=== PATIENT | male | born 1965 | race Caucasian/White ===

== ENCOUNTER 2017-02-26 21:28 | Inpatient (IN) | payer BC ==
[~2017-02-26] VITALS: Ht 188 cm; Wt 86.2 kg
[~2017-02-26 21:28] MED LIST: ATOR10TA PO; HYDR-548 PO
[2017-02-26] MEDS ORDERED: HYDROMORPHONE HCL 2 MG TABLET PO ONE ×2 (22:30→23:45)
[2017-02-26] MEDS ORDERED: ONDANSETRON ODT 4 MG TAB.RAPDIS SL ONE (22:30)
[2017-02-26] MEDS ORDERED: ONDANSETRON ODT 4 MG TAB.RAPDIS ONE (22:44)
[2017-02-26] MEDS ORDERED: HYDROMORPHONE HCL 2 MG TABLET ONE (22:45)
[2017-02-27] VITALS: BP 135/83
[2017-02-27] MEDS ORDERED: HYDROMORPHONE HCL 2 MG TABLET ONE (00:06)
[2017-02-27 00:21] LABS: BASOPHILS # (AUTO) 0.1 K/uL (0.0-8.0); BASOPHILS % (AUTO) 0.9 % (0.0-2.0); EOSINOPHILS # (AUTO) 0.1 K/uL (0.0-0.7); EOSINOPHILS % (AUTO) 0.7 % (0.0-7.0); HEMATOCRIT 44.3 % (36.7-47.1); HEMOGLOBIN 15.1 g/dL (12.5-16.3); LYMPHOCYTES # (AUTO) 1.5 K/uL (20.0-40.0); LYMPHOCYTES % (AUTO) 16.8 % (20.5-51.5); MEAN CORPUSCULAR HEMOGLOBIN 31.2 uug (23.8-33.4); MEAN CORPUSCULAR HGB CONC 34 g/dL (32.5-36.3); MONOCYTES # (AUTO) 0.7 K/uL (2.0-10.0); MONOCYTES % (AUTO) 7.9 % (0.0-11.0); NEUTROPHILS # (AUTO) 6.5 K/uL (1.8-8.9); NEUTROPHILS % (AUTO) 73.7 % (38.5-71.5); PLATELET COUNT (AUTO) 191 K/uL (152-348); RED BLOOD CELL COUNT(AUTO) 4.82 MIL/uL (4.06-5.63); WHITE BLOOD COUNT (AUTO) 8.8 K/uL (3.6-10.2)
[2017-02-27] MEDS ORDERED: LEVOFLOXACIN 750MG/D5W 150 ML IV ONE ×2 (00:27)
[2017-02-27] MEDS ORDERED: ENALAPRILAT DIHYDRATE INJ 2.5 MG in IV NORMAL SALINE 50 ML IV PRN (00:30)
[2017-02-27] MEDS ORDERED: CEFTRIAXONE 1 G in IV DEXTROSE 5% 50 ML IV SCH ×2 (00:30→23:30)
[2017-02-27] MEDS ORDERED: IV 1/2NS 1000 ML 1,000 ML IV PRN (00:30)
[2017-02-27] MEDS ORDERED: ALBUTEROL SULFATE 2.5 MG/3 ML NEBU NEB PRN (00:30)
[2017-02-27] MEDS ORDERED: AZITHROMYCIN IV 500 MG in IV DEXTROSE 5% 250 ML IV SCH (00:30)
[2017-02-27] MEDS ORDERED: ACETAMINOPHEN 325 MG TABLET PO PRN (00:30)
[2017-02-27] MEDS ORDERED: ONDANSETRON 4 MG/2 ML VIAL IV PRN (00:30)
[2017-02-27 00:34] LABS: BILIRUBIN,TOTAL 0.4 mg/dL (0.2-1.0); POTASSIUM 4.1 mmol/L (3.5-5.1); TOTAL PROTEIN, SERUM 7.3 g/dL (6.4-8.2)
[2017-02-27] MEDS: KETOROLAC TROMETHAMINE 15 MG INJ IVP PRN ×2 (01:16→08:35)
[2017-02-27] MEDS ORDERED: KETOROLAC TROMETHAMINE 15 MG INJ ONE (01:29)
[2017-02-27] MEDS ORDERED: CEFTRIAXONE 1 G VIAL ONE (02:30)
[2017-02-27] MEDS ORDERED: AZITHROMYCIN 500 MG VIAL IV ONE (02:31)
[2017-02-27] MEDS: HYDROMORPHONE 1 MG/1 ML DISP.SYRIN IV PRN ×2 (03:05→12:25)
[2017-02-27] MEDS ORDERED: HYDROMORPHONE 1 MG/1 ML DISP.SYRIN ONE (03:22)
[2017-02-27 04:00] VITALS: BP 113/73
[2017-02-27 06:30] LABS: BASOPHILS # (AUTO) 0.1 K/uL (0.0-8.0); EOSINOPHILS # (AUTO) 0.1 K/uL (0.0-0.7); EOSINOPHILS % (AUTO) 1.8 % (0.0-7.0); HEMATOCRIT 40.7 % (36.7-47.1); HEMOGLOBIN 13.9 g/dL (12.5-16.3); LYMPHOCYTES # (AUTO) 1.7 K/uL (20.0-40.0); LYMPHOCYTES % (AUTO) 24.6 % (20.5-51.5); MEAN CORPUSCULAR HEMOGLOBIN 31.5 uug (23.8-33.4); MEAN CORPUSCULAR HGB CONC 34 g/dL (32.5-36.3); MEAN CORPUSCULAR VOLUME 91.9 fL (73.0-96.2); MONOCYTES # (AUTO) 0.7 K/uL (2.0-10.0); MONOCYTES % (AUTO) 10.2 % (0.0-11.0); NEUTROPHILS # (AUTO) 4.4 K/uL (1.8-8.9); NEUTROPHILS % (AUTO) 62.4 % (38.5-71.5); PLATELET COUNT (AUTO) 179 K/uL (152-348); RED BLOOD CELL COUNT(AUTO) 4.43 MIL/uL (4.06-5.63); WHITE BLOOD COUNT (AUTO) 7.1 K/uL (3.6-10.2)
[2017-02-27 06:42] LABS: CREATININE 1.1 mg/dL (0.6-1.3); MAGNESIUM 1.8 mg/dL (1.8-2.4); PHOSPHOROUS 4.2 mg/dL (2.5-4.9); POTASSIUM 3.9 mmol/L (3.5-5.1)
[2017-02-27 11:45] VITALS: BP 119/73
[2017-02-27] MEDS ORDERED: HYDR2TAB4 PO (13:01)
[2017-02-27] MEDS ORDERED: ATOR40TA PO (13:01)
[2017-02-27] MEDS ORDERED: LEVO500T2 PO (13:01)
[2017-02-27] MEDS ORDERED: ATORVASTATIN 40 MG TABLET PO SCH (21:00)
== END 2017-02-27 14:35 | disposition home or self-care (01) | DRG 195 ==
LOC: ER 21:29 → MED 23:30
PROVIDERS: ADMIT Internal Medicine; ATTEND Internal Medicine
DX: J18.9 Pneumonia, unspecified organism (principal); E78.5 Hyperlipidemia, unspecified; G89.29 Other chronic pain; M51.36 Other intervertebral disc degeneration, lumbar region; Z87.442 Personal history of urinary calculi; Z87.891 Personal history of nicotine dependence
CPT/HCPCS: 36415; 70030-TC; 70450; 71045; 83605; 83735; 84100; 85025; 87040; 87400; A4663; J0456; J0696; J1170; J1885; J1956; J3490; J7060; Q0162

== ENCOUNTER 2017-02-28 00:11 | Inpatient (IN) | payer BC ==
[~2017-02-28] VITALS: Ht 188 cm; Wt 86.2 kg
[~2017-02-28 00:11] MED LIST changes: -ATOR10TA PO; +ATOR40TA PO; -HYDR-548 PO; +HYDR2TAB4 PO; +LEVO500T2 PO
[2017-02-28] MEDS ORDERED: BENZONATATE 100 MG CAPSULE PO ONE ×2 (01:15)
[2017-02-28] MEDS ORDERED: GUAIFENESIN/CODEINE 5 ML LIQUID UDC PO ONE (01:15)
[2017-02-28] MEDS ORDERED: ACETAMINOPHEN ES 500 MG TABLET PO ONE (01:15)
[2017-02-28] MEDS ORDERED: IBUPROFEN 800 MG TABLET PO ONE (01:15)
[2017-02-28] MEDS ORDERED: HYDROCODONE BIT/HOMATROPINE 5 ML UDC PO ONE (01:30)
[2017-02-28] MEDS ORDERED: ACETAMINOPHEN ES 500 MG TABLET ONE (01:41)
[2017-02-28] MEDS ORDERED: BENZONATATE 100 MG CAPSULE ONE (01:41)
[2017-02-28] MEDS ORDERED: IBUPROFEN 800 MG TABLET ONE (01:42)
[2017-02-28] MEDS ORDERED: HYDROCODONE BIT/HOMATROPINE 5 ML UDC ONE (01:47)
[2017-02-28] MEDS ORDERED: AZITHROMYCIN IV 500 MG in IV DEXTROSE 5% 250 ML IV SCH (02:00)
[2017-02-28] MEDS ORDERED: ONDANSETRON 4 MG/2 ML VIAL IV PRN ×2 (02:00→15:15)
[2017-02-28] MEDS ORDERED: CEFTRIAXONE 1 G in IV DEXTROSE 5% 50 ML IV SCH (02:00)
[2017-02-28] MEDS ORDERED: HYDROMORPHONE 1 MG/1 ML DISP.SYRIN IV PRN (02:00)
[2017-02-28] MEDS ORDERED: PIPERACILLIN SODIUM/TAZOBACTAM 3.375 G in IV DEXTROSE 5% 50 ML IV ONE (02:45)
[2017-02-28] MEDS ORDERED: IV NORMAL SALINE 1000 ML BAG IV ONE (02:45)
[2017-02-28] MEDS ORDERED: ONDANSETRON 4 MG/2 ML VIAL IV ONE (03:15)
[2017-02-28] MEDS ORDERED: MORPHINE SULFATE 4 MG/1 ML DISP.SYRIN IV ONE (03:15)
[2017-02-28] MEDS ORDERED: PIPERACILLIN/TAZOBACTAM/D5W 50 ML IV ONE (03:18)
[2017-02-28 03:26] LABS: BASOPHILS % (AUTO) 0.6 % (0.0-2.0); EOSINOPHILS # (AUTO) 0.2 K/uL (0.0-0.7); EOSINOPHILS % (AUTO) 1.9 % (0.0-7.0); HEMATOCRIT 41.9 % (36.7-47.1); HEMOGLOBIN 14.4 g/dL (12.5-16.3); LYMPHOCYTES # (AUTO) 1.5 K/uL (20.0-40.0); LYMPHOCYTES % (AUTO) 17.7 % (20.5-51.5); MEAN CORPUSCULAR HEMOGLOBIN 31.2 uug (23.8-33.4); MEAN CORPUSCULAR HGB CONC 34 g/dL (32.5-36.3); MEAN CORPUSCULAR VOLUME 91.2 fL (73.0-96.2); MONOCYTES # (AUTO) 0.8 K/uL (2.0-10.0); MONOCYTES % (AUTO) 9.2 % (0.0-11.0); NEUTROPHILS # (AUTO) 5.8 K/uL (1.8-8.9); NEUTROPHILS % (AUTO) 70.6 % (38.5-71.5); PLATELET COUNT (AUTO) 168 K/uL (152-348); WHITE BLOOD COUNT (AUTO) 8.2 K/uL (3.6-10.2)
[2017-02-28] MEDS ORDERED: ONDANSETRON 4 MG/2 ML VIAL ONE (03:27)
[2017-02-28] MEDS ORDERED: MORPHINE SULFATE 4 MG/1 ML DISP.SYRIN ONE (03:27)
[2017-02-28 03:33] LABS: BILIRUBIN,DIRECT 0.1 mg/dL (0.0-0.2); BILIRUBIN,TOTAL 0.3 mg/dL (0.2-1.0); CREATININE 1.1 mg/dL (0.6-1.3); TOTAL PROTEIN, SERUM 6.9 g/dL (6.4-8.2)
[2017-02-28] MEDS ORDERED: diphenhydrAMINE 50 MG/1 ML VIAL IV ONE (04:15)
[2017-02-28] MEDS ORDERED: METOCLOPRAMIDE HCL 10 MG/2 ML VIAL IV ONE (04:15)
[2017-02-28] MEDS ORDERED: METOCLOPRAMIDE HCL 10 MG/2 ML VIAL ONE (04:54)
[2017-02-28] MEDS ORDERED: diphenhydrAMINE 50 MG/1 ML VIAL ONE (04:54)
[2017-02-28 06:54] LABS: *BILIRUBIN,URIN NEGATIVE (NEGATIVE); *BLOOD, URINE 2+ (NEGATIVE); *CLARITY,URINE CLEAR (CLEAR); *COLOR,URINE YELLOW (YELLOW); *KETONES,URINE NEGATIVE (NEGATIVE); *PROTEIN,URINE NEGATIVE (NEGATIVE); *UROBILINOGEN,URINE 0.2 E.U./dl (NORMAL); LEUKOCYTE ESTERASE ,URINE NEGATIVE (NEGATIVE); NITRITE, URINE NEGATIVE (NEGATIVE); UGLUCOSE NEGATIVE (NEGATIVE)
[2017-02-28 07:18] LABS: BACTERIA,URINE NONE SEEN /HPF (NONE SEEN); SQUAMOUS EPITHELIAL CELL,UR FEW /HPF (NONE SEEN); WBC,URINE 0-3 /HPF (0-3)
[2017-02-28 07:54] LABS: BASOPHILS # (AUTO) 0.1 K/uL (0.0-8.0); BASOPHILS % (AUTO) 0.9 % (0.0-2.0); EOSINOPHILS # (AUTO) 0.2 K/uL (0.0-0.7); EOSINOPHILS % (AUTO) 2.3 % (0.0-7.0); HEMOGLOBIN 13.7 g/dL (12.5-16.3); LYMPHOCYTES # (AUTO) 1.9 K/uL (20.0-40.0); LYMPHOCYTES % (AUTO) 25.9 % (20.5-51.5); MEAN CORPUSCULAR HEMOGLOBIN 31.5 uug (23.8-33.4); MEAN CORPUSCULAR HGB CONC 34 g/dL (32.5-36.3); MEAN CORPUSCULAR VOLUME 91.7 fL (73.0-96.2); MONOCYTES # (AUTO) 0.8 K/uL (2.0-10.0); MONOCYTES % (AUTO) 10.4 % (0.0-11.0); NEUTROPHILS # (AUTO) 4.4 K/uL (1.8-8.9); NEUTROPHILS % (AUTO) 60.5 % (38.5-71.5); PLATELET COUNT (AUTO) 172 K/uL (152-348); RED BLOOD CELL COUNT(AUTO) 4.36 MIL/uL (4.06-5.63); WHITE BLOOD COUNT (AUTO) 7.3 K/uL (3.6-10.2)
[2017-02-28] MEDS: PANTOPRAZOLE SODIUM 40 MG TABLET.DR PO SCH (07:57)
[2017-02-28] MEDS ORDERED: PANTOPRAZOLE SODIUM 40 MG TABLET.DR PO ONE (08:06)
[2017-02-28] MEDS ORDERED: CEFTRIAXONE 1 G VIAL ONE (08:07)
[2017-02-28] MEDS ORDERED: AZITHROMYCIN 500 MG VIAL IV ONE (08:08)
[2017-02-28 08:19] LABS: BILIRUBIN,TOTAL 0.4 mg/dL (0.2-1.0); CREATININE 1.1 mg/dL (0.6-1.3); MAGNESIUM 1.9 mg/dL (1.8-2.4); PHOSPHOROUS 4.2 mg/dL (2.5-4.9); POTASSIUM 4.6 mmol/L (3.5-5.1); TOTAL PROTEIN, SERUM 6.3 g/dL (6.4-8.2)
[2017-02-28] MEDS ORDERED: HYDROMORPHONE 1 MG/1 ML DISP.SYRIN ONE (12:52)
[2017-02-28] MEDS ORDERED: ACETAMINOPHEN 325 MG TABLET PO PRN (15:15)
[2017-02-28 15:18] VITALS: BP 121/70
[2017-02-28] MEDS: IV 1/2NS 1000 ML 1,000 ML IV PRN (16:52)
[2017-02-28] MEDS: HYDROMORPHONE 4 MG/1 ML DISP.SYRIN IV PRN ×2 (16:56→20:47)
[2017-02-28 20:29] VITALS: BP 138/90
[2017-02-28] MEDS: ACETAMINOPHEN 325 MG TABLET PO PRN (20:59)
[2017-02-28] MEDS ORDERED: ATORVASTATIN 40 MG TABLET PO SCH (21:00)
[2017-03-01 04:47] VITALS: BP 119/82
[2017-03-01] MEDS: PANTOPRAZOLE SODIUM 40 MG TABLET.DR PO SCH (06:13)
[2017-03-01] MEDS: HYDROMORPHONE 4 MG/1 ML DISP.SYRIN IV PRN ×5 (06:21→15:39)
[2017-03-01 06:46] LABS: BASOPHILS # (AUTO) 0.1 K/uL (0.0-8.0); BASOPHILS % (AUTO) 0.9 % (0.0-2.0); EOSINOPHILS # (AUTO) 0.2 K/uL (0.0-0.7); EOSINOPHILS % (AUTO) 3.9 % (0.0-7.0); HEMATOCRIT 39.1 % (36.7-47.1); HEMOGLOBIN 13.3 g/dL (12.5-16.3); LYMPHOCYTES # (AUTO) 1.9 K/uL (20.0-40.0); LYMPHOCYTES % (AUTO) 32.3 % (20.5-51.5); MEAN CORPUSCULAR HGB CONC 34 g/dL (32.5-36.3); MEAN CORPUSCULAR VOLUME 91.1 fL (73.0-96.2); MONOCYTES # (AUTO) 0.8 K/uL (2.0-10.0); MONOCYTES % (AUTO) 12.9 % (0.0-11.0); NEUTROPHILS # (AUTO) 2.9 K/uL (1.8-8.9); PLATELET COUNT (AUTO) 168 K/uL (152-348); WHITE BLOOD COUNT (AUTO) 5.9 K/uL (3.6-10.2)
[2017-03-01 06:49] LABS: CREATININE 0.9 mg/dL (0.6-1.3); MAGNESIUM 1.7 mg/dL (1.8-2.4); PHOSPHOROUS 3.3 mg/dL (2.5-4.9); POTASSIUM 3.6 mmol/L (3.5-5.1)
[2017-03-01] MEDS ORDERED: PANTOPRAZOLE SODIUM 40 MG TABLET.DR PO SCH (07:00)
[2017-03-01] MEDS ORDERED: CEFTRIAXONE 1 G in IV DEXTROSE 5% 50 ML IV SCH (09:00)
[2017-03-01] MEDS ORDERED: AZITHROMYCIN IV 500 MG in IV DEXTROSE 5% 250 ML IV SCH (09:00)
[2017-03-01] MEDS: IV 1/2NS 1000 ML 1,000 ML IV PRN (09:37)
[2017-03-01] MEDS: ACETAMINOPHEN 325 MG TABLET PO PRN (10:09)
[2017-03-01 11:11] VITALS: BP 113/71
[2017-03-01] MEDS ORDERED: POTASSIUM CHLORIDE 20 MEQ TAB.PRT.SR PO ONE (12:30)
[2017-03-01] MEDS ORDERED: MAGNESIUM OXIDE 400 MG TABLET PO ONE (12:30)
[2017-03-01 15:00] VITALS: BP 140/83
== END 2017-03-01 15:50 | disposition home or self-care (01) | DRG 195 ==
LOC: ER 00:11 → MED 13:45
PROVIDERS: ADMIT Internal Medicine; ATTEND Internal Medicine
DX: J18.9 Pneumonia, unspecified organism (principal); E78.5 Hyperlipidemia, unspecified; M51.36 Other intervertebral disc degeneration, lumbar region; Z87.442 Personal history of urinary calculi; Z87.891 Personal history of nicotine dependence; Z79.899 Other long term (current) drug therapy; G89.29 Other chronic pain
CPT/HCPCS: 36415; 71045; 83605; 83735; 84100; 85025; 87040; 87086; 87400; A4663; J0456; J0696; J1170; J1200; J2270; J2405; J2543; J2765; J3490; J7030; J7060

== ENCOUNTER 2019-09-28 11:54 | Emergency (ER) | payer BC ==
[~2019-09-28] VITALS: Ht 182.9 cm; Wt 81.6 kg
--- NOTE | 2019-09-28 11:58 | NUR ---
PATIENT HERE FOR C/O CHEST PAIN. 12 LEAD EKG DONE.
[2019-09-28] MEDS ORDERED: NITROGLYCERIN 0.4 MG/TAB BOTTLE SL ONE ×2 (12:18→12:30)
[2019-09-28] MEDS ORDERED: ASPIRIN 81 MG TAB.CHEW ONE (12:18)
[2019-09-28 12:24] LABS: BASOPHILS # (AUTO) 0.1 K/uL (0.0-8.0); BASOPHILS % (AUTO) 1.1 % (0.0-2.0); EOSINOPHILS % (AUTO) 0.5 % (0.0-7.0); HEMATOCRIT 44.2 % (36.7-47.1); HEMOGLOBIN 14.8 g/dL (12.5-16.3); LYMPHOCYTES # (AUTO) 1.9 K/uL (20.0-40.0); LYMPHOCYTES % (AUTO) 33.4 % (20.5-51.5); MEAN CORPUSCULAR HEMOGLOBIN 30.3 uug (23.8-33.4); MEAN CORPUSCULAR HGB CONC 34 g/dL (32.5-36.3); MEAN CORPUSCULAR VOLUME 90.5 fL (73.0-96.2); MONOCYTES # (AUTO) 0.4 K/uL (2.0-10.0); MONOCYTES % (AUTO) 7.6 % (0.0-11.0); NEUTROPHILS # (AUTO) 3.3 K/uL (1.8-8.9); NEUTROPHILS % (AUTO) 57.4 % (38.5-71.5); PLATELET COUNT (AUTO) 226 K/uL (152-348); RED BLOOD CELL COUNT(AUTO) 4.88 MIL/uL (4.06-5.63); WHITE BLOOD COUNT (AUTO) 5.7 K/uL (3.6-10.2)
[2019-09-28] MEDS ORDERED: ASPIRIN 325 MG TABLET PO ONE (12:30)
[2019-09-28 12:44] LABS: CREATININE 0.9 mg/dL (0.6-1.3); POTASSIUM 3.9 mmol/L (3.5-5.1)
[2019-09-28 12:55] LABS: BILIRUBIN,DIRECT 0.1 mg/dL (0.0-0.2); BILIRUBIN,TOTAL 0.6 mg/dL (0.2-1.0); TOTAL PROTEIN, SERUM 7.2 g/dL (6.4-8.2)
--- NOTE | 2019-09-28 13:51 | NUR ---
PATIENT STATES PAIN HAS DIMINISHED SIGNIFICANTLY. STATES HE WANTS TO GO HOME AMA BUT WILL WAIT FOR SECOND TROPONIN. DR PATRICK SPOKE TO HIM. VITAL SIGNS STABLE
--- NOTE | 2019-09-28 15:50 | NUR ---
second 12 lead ekg and second troponin done. patient is awake and alert with no complaints
--- NOTE | 2019-09-28 16:45 | NUR ---
PATIENT STATES CHEST PAIN HAS RESOLVED. DR PATRICK WAS AT BEDSIDE SPEAKING TO PATIENT ABOUT ADMISSION TO HOSPITAL. PATIENT REFUSED.... STATES HE HAS TO TAKE CARE OF HIS DAUGHTER AND WHO IS COMPROMISED. PATIENT SIGNED AMA
--- NOTE | 2019-09-28 16:46 | NUR ---
IV removed. Catheter intact and site benign. Pressure and 4x4 gauze applied to site. No bleeding noted.
--- NOTE | 2019-09-28 16:47 | NUR ---
NITRO GIVEN X2.... TOTAL OF .8 PER ER STAY TODAY
--- NOTE | 2019-09-28 16:47 | NUR ---
DC AND FOLLOW UP INSTRUCTIONS GIVEN AND EXPLAINED TO PATIENT WHO STATES HE UNDERSTANDS ALL INSTRUCTIONS
[2019-09-28 16:49] VITALS: BP 136/87
== END 2019-09-28 16:50 | disposition home or self-care (01) ==
LOC: ER 11:54
DX: R07.9 Chest pain, unspecified (principal); F41.9 Anxiety disorder, unspecified; E78.5 Hyperlipidemia, unspecified; Z98.1 Arthrodesis status; G89.29 Other chronic pain; M54.9 Dorsalgia, unspecified
CPT/HCPCS: 36415; 70030-TC; 71045; 85025; 85730; 93005; A4663; J7030

== ENCOUNTER 2021-09-15 19:22 | Emergency (ER) | payer SELFPAY ==
--- NOTE | 2021-09-15 20:00 | NUR ---
Patient was called to be triaged but was not present in the waiting room or outside of ER.
--- NOTE | 2021-09-15 20:30 | NUR ---
Patient was called to be triaged but was not present in the waiting room or outside of ER.
--- NOTE | 2021-09-15 21:00 | NUR ---
Patient was called to be triaged but was not presen in the waiting room or outside of ER. PATIENT WAS NOT TRIAGED OR SEEN BY ERMD.
== END 2021-09-15 21:00 | disposition left against medical advice (07) ==
LOC: ER 19:23
DX: Z53.21 Procedure and treatment not carried out due to patient leaving prior to being seen by health care provider (principal)

== ENCOUNTER 2021-09-17 22:17 | Emergency (ER) | payer BC ==
[~2021-09-17] VITALS: Ht 188 cm; Wt 84.4 kg
--- NOTE | 2021-09-17 22:46 | NUR ---
pt walk to room 4b c/o back pain and testicular pain.
[2021-09-17] MEDS ORDERED: MORPHINE SULFATE 2 MG/1 ML DISP.SYRIN IV ONE (23:30)
[2021-09-17] MEDS ORDERED: IV NORMAL SALINE 1000 ML BAG IV ONE ×2 (23:30)
[2021-09-17] MEDS ORDERED: PROCHLORPERAZINE EDISYLATE 10 MG/2 ML VIAL IV ONE (23:30)
[2021-09-17] MEDS ORDERED: MORPHINE SULFATE 2 MG/1 ML DISP.SYRIN ONE (23:44)
[2021-09-17] MEDS ORDERED: PROCHLORPERAZINE EDISYLATE 10 MG/2 ML VIAL ONE (23:44)
[2021-09-17] MEDS ORDERED: MORPHINE SULFATE 4 MG/1 ML DISP.SYRIN ONE (23:44)
[2021-09-17 23:57] LABS: MEAN CORPUSCULAR HEMOGLOBIN 30.6 uug (23.8-33.4); MEAN CORPUSCULAR VOLUME 90.4 fL (73.0-96.2); PLATELET COUNT (AUTO) 299 K/uL (152-348)
[2021-09-18 00:12] LABS: ALANINE AMINOTRANSFERASE 69 U/L (16-63); ALKALINE PHOSPHATASE 107 U/L (50-136); ASPARTATE AMINOTRANSFERASE 45 U/L (15-37); BILIRUBIN,DIRECT 0.1 mg/dL (0.0-0.2); BILIRUBIN,TOTAL 0.4 mg/dL (0.2-1.0); CARBON DIOXIDE 31 mmol/L (21-32); CHLORIDE 102 mmol/L (98-107); GLUCOSE 97 mg/dL (74-106); POTASSIUM 3.5 mmol/L (3.5-5.1); TOTAL PROTEIN, SERUM 7.8 g/dL (6.4-8.2); UREA NITROGEN, BLOOD 20 mg/dL (7-18)
[2021-09-18] MEDS ORDERED: levoFLOXacin 750MG/D5W 150 ML IV ONE (00:59)
[2021-09-18] MEDS ORDERED: levoFLOXacin 750 MG/D5W 150 ML PIGGYBACK IV ONE (01:00)
[2021-09-18] MEDS ORDERED: IOHEXOL 300MG/ML 50 ML VIAL ONE ×2 (01:01→01:02)
[2021-09-18] MEDS ORDERED: IV NORMAL SALINE 250 ML IV ONE (01:02)
[2021-09-18] MEDS ORDERED: SWABABLE VALVE TRANSFER SET EA MC ONE (01:02)
--- NOTE | 2021-09-18 01:13 | NUR ---
pt taken to cat scan.
[2021-09-18] MEDS ORDERED: LISI40TA13 PO (01:57)
[2021-09-18] MEDS ORDERED: OXYC-128 PO (02:39)
[2021-09-18] MEDS ORDERED: LEVO500T90 PO (02:39)
--- NOTE | 2021-09-18 03:02 | NUR ---
Patient discharged to home in stable condition. Written and verbal after care instructions given. Patient verbalizes understanding of instructions. Stressed follow up or return to ER for worsening s/s.
[2021-09-18 03:03] VITALS: BP 126/70
[2021-09-18 03:56] LABS: *BILIRUBIN,URIN NEGATIVE (NEGATIVE); *BLOOD, URINE 2+ (NEGATIVE); *CLARITY,URINE CLEAR (CLEAR); *COLOR,URINE YELLOW (YELLOW); *KETONES,URINE NEGATIVE (NEGATIVE); *UROBILINOGEN,URINE 0.2 E.U./dl (NORMAL); LEUKOCYTE ESTERASE ,URINE NEGATIVE (NEGATIVE); NITRITE, URINE NEGATIVE (NEGATIVE); PH,URINE 5.5 (5.0-8.0); UGLUCOSE NEGATIVE (NEGATIVE)
[2021-09-18 04:05] LABS: BACTERIA,URINE NONE SEEN /HPF (NONE SEEN); SQUAMOUS EPITHELIAL CELL,UR NONE SEEN /HPF (NONE SEEN); WBC,URINE 0-3 /HPF (0-3)
== END 2021-09-18 03:04 | disposition home or self-care (01) ==
LOC: ER 22:17
DX: N45.3 Epididymo-orchitis (principal); S20.219A Contusion of unspecified front wall of thorax, initial encounter; V92.03XA Drowning and submersion due to fall off other powered watercraft, initial encounter; Y93.19 Activity, other involving water and watercraft; Y92.89 Other specified places as the place of occurrence of the external cause; E78.5 Hyperlipidemia, unspecified; I10 Essential (primary) hypertension; Z87.01 Personal history of pneumonia (recurrent); Z20.822 Contact with and (suspected) exposure to COVID-19
CPT/HCPCS: 99285; 74177; 71045; 87426; 80076; 80048; 83735; 85025; 84145; 85730; 87040 ×2; 84484; 36415; 93005; 76870; 83605; 81001; 87086; J0780; J2270 ×2; Q9967 ×2; J1956; J7040 ×3; A4663

== ENCOUNTER 2023-01-26 13:59 | Emergency (ER) | payer BC ==
[~2023-01-26] VITALS: Ht 188 cm; Wt 86.2 kg
[~2023-01-26 13:59] MED LIST changes: -ATOR40TA PO; -HYDR2TAB4 PO; -LEVO500T2 PO; +LEVO500T90 PO; +LISI40TA13 PO; +OXYC-128 PO
[2023-01-26 14:17] VITALS: O2SAT 96
[2023-01-26] MEDS ORDERED: IV NORMAL SALINE 1000 ML BAG IV ONE (14:30)
[2023-01-26 14:49] LABS: BASOPHILS # (AUTO) 0.1 K/UL (0.0-0.2); BASOPHILS % (AUTO) 1.2 % (0.0-2.0); EOSINOPHILS % (AUTO) 0.8 % (0.0-7.0); HEMOGLOBIN 13.9 g/dL (12.5-16.3); LYMPHOCYTES # (AUTO) 1.6 K/uL (0.8-4.8); LYMPHOCYTES % (AUTO) 31.8 % (20.5-51.5); MEAN CORPUSCULAR HEMOGLOBIN 31.2 uug (23.8-33.4); MEAN CORPUSCULAR HGB CONC 34 g/dL (32.5-36.3); MONOCYTES # (AUTO) 0.4 K/uL (0.1-1.30); MONOCYTES % (AUTO) 8.1 % (0.0-11.0); NEUTROPHILS % (AUTO) 58.1 % (38.5-71.5); PLATELET COUNT (AUTO) 215 K/uL (152-348); RED BLOOD CELL COUNT(AUTO) 4.45 MIL/uL (4.06-5.63); WHITE BLOOD COUNT (AUTO) 5.1 K/uL (3.6-10.2)
[2023-01-26 14:56] LABS: DIFFERENTIAL COMMENT 1
[2023-01-26 15:08] LABS: CARBON DIOXIDE 27 mmol/L (21-32); CHLORIDE 105 mmol/L (98-107); CREATININE 0.8 mg/dL (0.6-1.3); GLUCOSE 100 mg/dL (74-106); POTASSIUM 3.8 mmol/L (3.5-5.1); SODIUM SERUM 140 mmol/L (136-145); UREA NITROGEN, BLOOD 18 mg/dL (7-18)
[2023-01-26] MEDS ORDERED: METOCLOPRAMIDE HCL 10 MG/2 ML VIAL IV ONE (15:15)
[2023-01-26] MEDS ORDERED: ACETAMINOPHEN ES 500 MG TABLET PO ONE (15:15)
[2023-01-26] MEDS ORDERED: DEXAMETHASONE SOD PHOSPHATE 4 MG INJ IV ONE (15:15)
[2023-01-26] MEDS ORDERED: diphenhydrAMINE 50 MG/1 ML VIAL IVP ONE (15:15)
[2023-01-26] MEDS ORDERED: ACETAMINOPHEN ES 500 MG TABLET ONE (15:27)
[2023-01-26] MEDS ORDERED: diphenhydrAMINE 50 MG/1 ML VIAL ONE (15:28)
[2023-01-26] MEDS ORDERED: METOCLOPRAMIDE HCL 10 MG/2 ML VIAL ONE (15:28)
[2023-01-26] MEDS ORDERED: DEXAMETHASONE SOD PHOSPHATE 10 MG INJ ONE (15:28)
[2023-01-26] MEDS ORDERED: SWABABLE VALVE TRANSFER SET EA MC ONE (15:36)
[2023-01-26] MEDS ORDERED: IOHEXOL 350 100 ML INFUS..BTL ONE (15:36)
[2023-01-26] MEDS ORDERED: IV NORMAL SALINE 250 ML IV ONE (15:36)
[2023-01-26] MEDS ORDERED: IBUP-1955 PO (15:55)
[2023-01-26] MEDS ORDERED: METH4TAB3 PO (15:55)
[2023-01-26] MEDS ORDERED: CYCL5TAB PO (15:55)
== END 2023-01-26 16:06 | disposition home or self-care (01) ==
LOC: ER 13:59
DX: R51.9 Headache, unspecified (principal); R55 Syncope and collapse; E78.5 Hyperlipidemia, unspecified; G89.29 Other chronic pain; M54.9 Dorsalgia, unspecified; F17.210 Nicotine dependence, cigarettes, uncomplicated; R07.89 Other chest pain; Z90.89 Acquired absence of other organs; Z79.2 Long term (current) use of antibiotics; Z79.899 Other long term (current) drug therapy
CPT/HCPCS: 99285; 96374; 71045; 96375; 96361; 80048; 85025; 84484; 36415; 93005; J1100; J1200; J2765; J7040; A4606; A4663; A9150; Q9967